=== PATIENT | female | born 1995 | race Caucasian/White ===

== ENCOUNTER 2017-11-16 17:11 | Emergency (ER) | payer BC ==
[~2017-11-16] VITALS: Ht 165.1 cm; Wt 65.0 kg
[2017-11-16 17:34] VITALS: TEMP 37.3; Ht 165.1 cm; Wt 65.0 kg
[2017-11-16] MEDS ORDERED: BCPILLS PO (18:31)
--- NOTE | 2017-11-16 19:06 | DIAGNOSTIC IMAGING REPORT ---
HEAD CT NONCONTRAST CT DOSE: 537.48 mGy.cm HISTORY: fall early this AM; headache, vomiting TECHNIQUE: Multiaxial CT images of the head were performed without the use of intravenous contrast. Automated exposure control was utilized for this study. A dose lowering technique was utilized adhering to the principles of ALARA. Comparison: None. Findings: The paranasal sinuses and mastoid air cells are clear. The calvarium and skull base are intact. The ventricles and sulci are within normal limits. There is no mass, hematoma, midline shift, or acute infarct. Impression: No acute intracranial abnormality. Mild posterior scalp swelling. Electronically signed by: Les Mora M.D. 11/16/2017 7:05 PM Dictated Date/Time: 11/16/2017 6:54 PM
[2017-11-16 19:22] VITALS: BP 136/77; PULSE 98; O2SAT 100
--- NOTE | 2017-11-17 12:38 | EMERGENCY ROOM VISIT NOTE ---
ED Visit Note First contact with patient: 17:38 Chief Complaint: I think I have a concussion. History of Present Illness: Ms. Bolaños is a 22-year-old white female who ambulates into the ED accompanied by female friend complaining of a concussion. Patient was referred to the ED for CT scan of her head following a fall yesterday from the local urgent care center. Patient reports early this morning approximately 2 AM, 15 hours ago, she reports she was in her room changing. She was drinking alcohol. She reports she slipped and fell backwards on a rug that was covering a wooden floor. She reports at the time of the fall she did not have a loss of consciousness. She reports going to bed and sleeping. She reports when she woke she had a headache over the biparietal area. Since that time the pain has been constant. She describes her discomfort as a pressure sensation. She rates her discomfort 5/10. Her pain is nonradiating. She has not identified any aggravating or alleviating factors related to the pain. She has not taken any medications for pain prior to arrival at the hospital. She does report after waking this morning she did have nausea and had 3 episodes of vomiting and since that time she has had no additional vomiting. Additionally she reports she feels unstable on her feet and has difficulty ambulating because of the instability. She also reports she is having dizziness. She denies visual changes, hearing changes, difficulty speaking, difficulty swallowing, neck pain, back pain, chest pain, abdominal pain, extremity weakness /numbness/tingling. Review of Systems: As noted above in history of present illness. All 5 body systems were reviewed and found to be negative as noted above. Past Medical History: Patient denies. Current Medications: control. Allergies to Medications: Patient denies. Social History: Patient is currently University student; she feels safe in her home environment; she denies tobacco use and admits to alcohol use. Physical Examination: Vital Signs: Date Time Temp Pulse Resp B/P (MAP) Pulse Ox O2 Delivery O2 Flow Rate FiO2 11/16/17 19:22 98 18 136/77 100 11/16/17 17:34 37.3 105 18 134/89 100 Room Air GENERAL: 22-year-old female in mild distress due to symptoms, nontoxic- appearing, afebrile and hemodynamically stable. NEUROLOGICAL: Awake, alert and oriented to person, place and time. Answering questions appropriately and following commands. Normal gait. Good hand eye coordination. Romberg test positive. Pronator drift test negative. Cranial nerves II through XII grossly intact. Normal heel hurt test. Normal rapid alternate movements of the hands. Able to spell backwards area and able to count backwards. Good long-term recall. Able to remember 2 of the 3 items for short-term recall. SKIN: Warm, dry and pink. Scalp: Contusion noted over the occipital area with mild to moderate tenderness. HEENT: Atraumatic and normocephalic. Skull: No bony deformities, bony crepitus , depressions but tenderness as noted above. No raccoon's eyes or whitaker signs. No drainage from the ears of the nostril; no hemotympanum. Face: No bony deformity, bony crepitus, swelling or ecchymosis. PERRLA. EOMI without nystagmus. Sclera white and conjunctiva pink. No malocclusion. No external trauma. Airway patent. Speech is normal and clear. Trachea midline. No jugular venous distention. BACK: No tenderness over the bony cervical, thoracic and lumbar spine. Full range of motion of the cervical spine. No CVA tenderness. THORAX: Lungs sounds are clear to auscultation and equal bilaterally with symmetrical chest wall. ABDOMEN: Flat, soft and nontender. Positive bowel sounds in all quadrants. No guarding, rigidity or organomegaly. EXTREMITIES: Moves all extremities well on command and with purpose. All distal neurovascular statuses are intact and equal bilaterally. Right/5 muscle strength in all movements of the upper lower extremity joints. ED Course: Patient is assessed as noted above. Patient's medication list was reviewed. Head CT: Was reviewed by myself and read by the radiologist and shows no acute intracranial abnormalities or skull fractures. Mild posterior scalp swelling. Patient was offered pain medications and refused. Patient was educated about today's findings and instructed on her treatment plan ; she verbalized understanding and agreement with this plan. Clinical Impression: Concussion. Disposition: Patient discharged home in stable condition; prior to departure she was reassessed and subjectively reported she was feeling slightly better and rated her headache 4/10. Plan: Patient was encouraged to alternate ibuprofen and acetaminophen as needed for pain every 3 hours. Patient was encouraged use ice on areas of pain and swelling 4-5 times a day for 20-30 minutes. Patient was encouraged to avoid alcohol for the next 48 hours. Patient was encouraged to rest with no strenuous activities for the next 48 hours. Patient was educated on signs of worsening head injury. Patient did report she was from out of the area and she goes to school in [place]; I did encourage her to follow-up with the local health clinic on campus for possible referral to concussion clinic. Patient was encouraged return to the ED for any signs of worsening head injury or any new/concerning symptoms.
== END 2017-11-16 19:18 | disposition home or self-care (01) ==
LOC: C.EDB 17:13 → C.EDD 19:18
DX: S06.0X0A Concussion without loss of consciousness, initial encounter (principal); W01.0XXA Fall on same level from slipping, tripping and stumbling without subsequent striking against object, initial encounter; Y93.89 Activity, other specified; Y92.003 Bedroom of unspecified non-institutional (private) residence as the place of occurrence of the external cause; Z72.89 Other problems related to lifestyle; Z79.3 Long term (current) use of hormonal contraceptives